=== PATIENT | female | born 1995 | race Two or more races ===

== ENCOUNTER 2017-05-06 12:20 | Emergency (ER) | payer SELFPAY ==
[~2017-05-06] VITALS: Ht 154.9 cm; Wt 54.0 kg
[~2017-05-06 12:20] MED LIST: ALBU0.63 NEB; ALBU6.7H INH; PRED5SOL PO
[2017-05-06 12:23] VITALS: BP 126/71; PULSE 80; RESP 16; TEMP 98.3; O2SAT 100
[2017-05-06] MEDS ORDERED: ONDANSETRON ODT 4 MG TAB PO ONE (15:00)
[2017-05-06] MEDS ORDERED: FAMOTIDINE 20 MG TAB PO ONE (15:00)
[2017-05-06] MEDS ORDERED: LIDOCAINE VISCOUS 2% SOLN 15 ML UDC PO ONE (15:00)
[2017-05-06] MEDS ORDERED: ALUMINUM/MAGNESIUM/SIMETH 30 ML CUP PO ONE (15:00)
[2017-05-06] MEDS ORDERED: RANI150T PO (15:01)
[2017-05-06] MEDS ORDERED: ONDA4TAB7 SL (15:01)
--- NOTE | 2017-05-06 15:01 | PD ---
HPI Chief Complaint: Cold / Flu Symptoms Time Seen by Provider: 14:35 Travel History International Travel<30 days: No Contact w/Intl Traveler<30days: No Traveled to known affect area: No History of Present Illness HPI Is a 21-year-old woman presents to the emergency department complaining of nausea vomiting throat pain had pain body aches. Liver cough. States been going on for the past day or 2. She has had some blood in her emesis. No definite sick contacts. Mild lower abdominal pain. No urinary symptoms. No other complaints. History Past Medical History Medical History: Denies Significant Hx Social History Alcohol Use: Yes (OCC) Tobacco Use: Yes (OCC) Allergies-Medications (Allergen,Severity, Reaction): Coded Allergies: No Known Allergies (Unverified Adverse Reaction, Unknown, 05/06/17) Reported Meds & Prescriptions Reported Meds & Active Scripts Active No Active Prescriptions or Reported Medications Review of Systems Except as stated in HPI: all other systems reviewed are Neg Physical Exam Narrative GENERAL: Well-appearing 21-year-old woman, no acute distress. SKIN: Focused skin assessment warm/dry. HEAD: Atraumatic. Normocephalic. EYES: Pupils equal and round. No scleral icterus. No injection or drainage. ENT: No nasal bleeding or discharge. Mucous membranes pink and moist. Throat normal. TMs normal peer NECK: Trachea midline. No JVD. No appreciable cervical adenopathy. A little bit of tenderness. CARDIOVASCULAR: Regular rate and rhythm. No murmur appreciated. RESPIRATORY: No accessory muscle use. Clear to auscultation. Breath sounds equal bilaterally. GASTROINTESTINAL: Normal contour and appearance. Abdomen soft. There is minimal left-sided tenderness. MUSCULOSKELETAL: No obvious deformities. No clubbing. No cyanosis. No edema. NEUROLOGICAL: Awake and alert. No obvious cranial nerve deficits. Motor grossly within normal limits. Normal speech. PSYCHIATRIC: Appropriate mood and affect; insight and judgment normal. Data Data Last Documented VS Vital Signs Date Time Temp Pulse Resp B/P (MAP) Pulse Ox O2 Delivery O2 Flow Rate FiO2 05/06/17 12:23 98.3 80 16 126/71 (89) 100 Orders Orders Influenzae A/B Antigen (05/06/17 12:25) Group A Rapid Strep Screen (05/06/17 12:25) Strep Culture (Group A) (05/06/17 12:30) MDM Medical Decision Making Medical Screen Exam Complete: Yes Emergency Medical Condition: Yes Interpretation(s) Rapid strep negative Flu negative Differential Diagnosis Flulike symptoms, GI illness, gastroenteritis, esophagitis, appendicitis, UTI, other Narrative Course Medical decision making Is a 21-year-old woman who presents to the emergency department complaining of nausea vomiting sore throat and throat pain. Looks well. I think this is viral syndrome with esophagitis from vomiting. Abdominal exam is really pretty benign. Denies any urinary symptoms or vaginal symptoms. Will check test. Rapid strep and flu are negative. Recommend supportive treatment. Diagnosis Primary Impression: Nausea & vomiting Additional Instructions: Take ranitidine as prescribed. The Zofran as needed for nausea or vomiting. Drink plenty fluids stay well-hydrated. Return to the emergency department for any new or worsening symptoms. Med/Other Pt SpecificInfo: Prescription(s) given Scripts Ondansetron Odt (Ondansetron Odt) 4 Mg Tab 4 MG SL Q8HR Y for Nausea/Vomiting, #15 TAB 0 Refills Prov: Amado Jennings MD 05/06/17 Ranitidine (Ranitidine) 150 Mg Tab 150 MG PO BID for Heartburn Management, #20 TAB 0 Refills Prov: Amado Jennings MD 05/06/17 Disposition: 01 DISCHARGE HOME Condition: Stable Amado Jennings MD May 06, 2017 15:01
== END 2017-05-06 15:42 | disposition home or self-care (01) ==
LOC: NEPD 12:20
DX: R11.2 Nausea with vomiting, unspecified (principal); Z72.0 Tobacco use
CPT/HCPCS: 84703; 87081; 87804; 87880; 99283